=== PATIENT | female | born 1965 | race Caucasian/White ===

== ENCOUNTER 2018-01-25 15:49 | Emergency (ER) | payer SELFPAY ==
[~2018-01-25] VITALS: Ht 162.6 cm; Wt 65.5 kg
[2018-01-25 16:25] VITALS: BP_SYST 113; BP_SYST 143; BP_DIAS 67; BP_DIAS 92
--- NOTE | 2018-01-25 17:22 | NUR ---
AMBULATED TO ROOM 8 , AWAIT MD LAKE
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
--- NOTE | 2018-01-25 17:42 | NUR ---
PT TO RADIOLOGY VIA
--- NOTE | 2018-01-25 19:16 | NUR ---
PT LAYING IN BED, NO NEW NEEDS AT THIS TIME. RECEIVED REPORT FROM TUSHAR, WILL CONTINUE TO MONITOR.
--- NOTE | 2018-01-25 19:29 | NUR ---
Patient being evaluated by at bedside.
[2018-01-25] MEDS ORDERED: IBUPROFEN 600 MG TAB PO ONE (20:00)
[2018-01-25 20:28] VITALS: BP 123/65
== END 2018-01-25 20:24 | disposition home or self-care (01) ==
LOC: MED 15:49
DX: S16.1XXA Strain of muscle, fascia and tendon at neck level, initial encounter (principal); S39.012A Strain of muscle, fascia and tendon of lower back, initial encounter; E11.9 Type 2 diabetes mellitus without complications; Z88.5 Allergy status to narcotic agent; V43.62XA Car passenger injured in collision with other type car in traffic accident, initial encounter; Y93.89 Activity, other specified; Y92.411 Interstate highway as the place of occurrence of the external cause; Y99.8 Other external cause status
CPT/HCPCS: 71046; 72100; 73020; 99283